=== PATIENT | male | born 1965 | race Caucasian/White ===

== ENCOUNTER 2017-05-12 20:44 | Emergency (ER) | payer BC ==
[2017-05-12] MEDS ORDERED: LET GEL TOPICAL 1 EA SYR TP ONE (21:14)
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
[2017-05-12 22:04] VITALS: BP 128/78; PULSE 80; RESP 14; TEMP 97.9; O2SAT 94
== END 2017-05-12 22:03 | disposition home or self-care (01) ==
PROC: 0HQKXZZ Repair Right Lower Leg Skin, External Approach (ICD-10-PCS; principal; 2017-05-12)
DX: S81.011A Laceration without foreign body, right knee, initial encounter (principal); S40.811A Abrasion of right upper arm, initial encounter; V18.2XXA Unspecified pedal cyclist injured in noncollision transport accident in nontraffic accident, initial encounter

== ENCOUNTER → 2017-11-11 | Outpatient (CLI) | payer OTHER, BC | LOC: BMCIMAGING 15:15 | PROVIDERS: ATTEND Family Medicine | DX: S69.92XA Unspecified injury of left wrist, hand and finger(s), initial encounter (principal) ==

== ENCOUNTER → 2017-12-03 | Outpatient (CLI) | payer BC | LOC: BMCIMAGING 14:48 | PROVIDERS: ATTEND Emergency Medicine | DX: M25.522 Pain in left elbow (principal) ==

== ENCOUNTER → 2019-02-11 | Outpatient (CLI) | payer BC | LOC: BMCIMAGING 12:18 | PROVIDERS: ATTEND Internal Medicine | DX: J98.4 Other disorders of lung (principal) ==